=== PATIENT | female | born 1965 | race Caucasian/White ===

== ENCOUNTER 2024-12-05 16:54 | Emergency (ER) | payer BC, SELFPAY ==
[2024-12-05 16:59] VITALS: BP 94/65; PULSE 97; RESP 16; TEMP 36.5; O2SAT 97; BMI 20.9
--- NOTE | 2024-12-05 17:09 | XRR_ITS ---
PROCEDURE INFORMATION: Exam: XR Chest Exam date and time: 12/05/2024 5:28 PM Age: 59 years old Clinical indication: Shortness of breath; Prior surgery; Surgery date: 6+ months; Surgery type: RT pleural drain, lt port placement; RT pleural drain leaking around insertion site; Insertion x 2 mo ago; SOB TECHNIQUE: Imaging protocol: Radiologic exam of the chest. Views: 1 view. COMPARISON: No relevant prior studies available. FINDINGS: Tubes, catheters and devices: Left chest port terminates at the distal SVC. Right pleural drain noted with side port projecting in the right upper chest. Lungs: Complete atelectasis of the right lung. Left lung is clear. Pleural spaces: Large right pleural effusion. No pneumothorax. Heart/Mediastinum: Unremarkable. No cardiomegaly. Bones/joints: Unremarkable. XR/XR chest 1V portable [id number] IMPRESSION: Large volume right pleural effusion with complete atelectasis of the right lung. Findings would suggest malfunctioning pleural drain.
--- NOTE | 2024-12-05 17:18 | ED_ITS ---
HPI - General Adult General: Chief complaint: General Medical Stated complaint: side tube is leaking Time Seen by Provider: 12/05/24 17:08 Source: patient Mode of arrival: ambulatory Limitations: no limitations History of Present Illness: 59-year-old female states that she has a history of brain cancer she sees [facility] in [place] for that she states she has been having pleural effusions like placed a pleural drain on October 30 she states she had been draining it herself at home every 48 hours but did switch to every 72 the last time she drank was 2 days ago she states that today she started noticing soaking at her dressing at the site that was mainly clear denies any fevers denies any pain or shortness of breath Associated symptoms: Deny chest pain, dyspnea, headache(s), nausea, rash or vomiting Related Data Allergies Allergy/AdvReac Type Severity Reaction Status Date / Time No Known Allergies Allergy Verified 12/05/24 17:04 Review of Systems Const: Denies: fever(s), chills, body aches or change in appetite ENMT: Denies: throat pain or dental pain Card: Denies: chest pain Resp: Denies: dyspnea GI: Denies: abdominal pain, nausea, vomiting or diarrhea Musc: Denies: neck pain or back pain Skin/Breast: Denies: rash Neuro: Denies: headache(s) Psych: Denies: depression Physical Exam Const: COMMON NORMALS: no acute distress, patient oriented x3 and healthy appearing HENMT: COMMON NORMALS: normocephalic and atraumatic HEAD & SCALP: normocephalic and atraumatic Neck/C-Spine: COMMON NORMALS: full ROM and supple Chest: OTHER: Pleural drain placed in the right chest dressing does have serosanguineous fluid did remove the dressing no erythema no active drainage at the site at this time Resp: COMMON NORMALS: normal respiratory effort, No retractions, No use of accessory muscles and clear to auscultation bilaterally AUSCULTATION: clear to auscultation bilaterally Cardio: COMMON NORMALS: regular rate, regular rhythm and No murmurs present (Cardio) RATE: regular rate RHYTHM: regular rhythm Extremity: COMMON NORMALS: normal to inspection and full ROM Neuro: COMMON NORMALS: patient oriented x3, moves all extremities and no focal motor deficits Psych: COMMON NORMALS: mental status grossly normal, Normal thought process present and cooperative THOUGHT PROCESS: Normal thought process present Skin: COMMON NORMALS: no rashes or lesions noted and no wounds GENERAL SKIN EXAM: no rashes or lesions noted Course Vital Signs: Vital signs: Vital Signs Temperature 97.7 F 12/05/24 16:59 Pulse Rate 97 12/05/24 16:59 Respiratory Rate 16 12/05/24 16:59 Blood Pressure 94/65 12/05/24 16:59 Pulse Oximetry 97 12/05/24 16:59 Oxygen Delivery Me thod Room Air 12/05/24 16:59 MDM - General Adult Medical Decision Making Patient presents here with drainage around her pleural tube likely from her pleural effusion reaccumulating did drain 1.75 L off she feels improved x-ray is improved she is to follow with her oncology team next week return if worsening she understands agrees to plan continue to do her draining at home as scheduled every 48 hours. Medical Records I reviewed the patient's medical records. All radiology interpretation(s) finalized by discharge Discharge Plan Discharge Patient Disposition: Home Clinical Impression: Pleural effusion Condition: Stable Discharge Orders: Discharge ED (Routine); Ordered 12/05/24 Ordered By: Livan Gilliam Discharge Diet: Advance as tolerated Discharge Activity: Resume usual activity Patient Instructions: Pleural Effusion (DC) Print Language: Bangladeshi Coding Level of Care Code ED Recruitment Specialist for Amando Alonzo
--- NOTE | 2024-12-05 18:23 | XRR_ITS ---
PROCEDURE INFORMATION: Exam: XR Chest Exam date and time: 12/05/2024 6:34 PM Age: 59 years old Clinical indication: Shortness of breath; Prior surgery; Surgery date: 1-6 months; Surgery type: Lt port placement; RT pleural tube insertion; Post RT pleural tube drainage (approx 1700ml); RT pleural drain leaking around insertion site; Insertion x 2 mo ago; SOB TECHNIQUE: Imaging protocol: Radiologic exam of the chest. Views: 1 view. COMPARISON: CR (CHEST, ) 12/05/2024 5:28 PM FINDINGS: Tubes, catheters and devices: Left chest port stable in positioning. Lungs: Most of the right lung remains atelectatic. Left chest is clear. Pleural spaces: Residual moderate to large volume right pleural effusion remains, but there is improved drainage compared to prior study. No pneumothorax. Heart/Mediastinum: Unremarkable. No cardiomegaly. Bones/joints: Unremarkable. XR/XR chest 1V portable [id number] IMPRESSION: Improved drainage of the now moderate to large volume right pleural effusion. Improving aeration of the right lung, however, most of the lung remains atelectatic.
[2024-12-05 19:05] VITALS: BP 98/68; PULSE 102; O2SAT 98
== END 2024-12-05 19:07 | disposition home or self-care (01) ==
PROVIDERS: Emergency Provider Emergency Medicine
DX: J90 Pleural effusion, not elsewhere classified (principal); Z85.841 Personal history of malignant neoplasm of brain
CPT/HCPCS: 71045; 99283